=== PATIENT | female | born 1975 | race African-American/Black ===

== ENCOUNTER 2016-12-14 09:11 | Emergency (ER) | payer OTHER ==
[~2016-12-14] VITALS: Ht 180.3 cm; Wt 136.1 kg
[2016-12-14 09:23] VITALS: BP 166/99
--- NOTE | 2016-12-14 09:41 | PHYS DOC ---
Past Medical History Past Medical History: No Pertinent History Past Surgical History: No Surgical History Smoking: Less than 1pk/day Alcohol Use: Rarely Drug Use: None Adult General Chief Complaint Chief Complaint: SORE THROAT HPI HPI Patient is a 41 year old female who presents with sore throat and fever for 3 days. She reports temperature up to 102F. She completed the pain in the right ear and productive cough as well. She denies nasal congestion or shortness of breath. She sees a PCP at [facility]. Review of Systems Review of Systems Constitutional: Reports fever. Eyes: Denies change in visual acuity, redness, or eye pain. [] HENT: Denies nasal congestion. Reports sore throat and right ear pain. Respiratory: Denies shortness of breath. Reports productive cough. Cardiovascular: Denies chest pain, palpitations or edema. [] GI: Denies abdominal pain, nausea, vomiting, bloody stools or diarrhea. [] : Denies dysuria, hematuria or urinary frequency. [] Musculoskeletal: Denies back pain or joint pain. [] Integument: Denies rash or skin lesions. [] Neurologic: Denies headache, focal weakness or sensory changes. [] Endocrine: Denies polyuria or polydipsia. [] Psych: Denies anxiety or depression. [] All systems reviewed and negative unless otherwise stated in the HPI. Allergies Allergies Allergies Coded Allergies Type Severity Reaction Last Updated Verified No Known Drug Allergies 12/14/16 No Physical Exam Physical Exam Constitutional: Well developed, well nourished, no acute distress, non-toxic appearance. [] HENT: Normocephalic, atraumatic, bilateral external ears normal, oropharynx moist, no oral exudates, nose normal. Bilateral TMs without erythema or bulging. There is posterior pharyngeal erythema with bilateral tonsillar edema. There is no peritonsillar abscess or uvular deviation. Bilateral turbinates are swollen and erythematous with purulent drainage. Eyes: PERRLA, EOMI, conjunctiva normal, no discharge. [] Neck: Normal range of motion, no tenderness, supple, no stridor. Right anterior cervical lymphadenopathy. Cardiovascular: Heart rate regular rhythm, no murmur [] Lungs & Thorax: Bilateral breath sounds clear to auscultation without wheezes, rales, or rhonchi. Skin: Warm, dry, no erythema, no rash. [] Neurologic: Alert and oriented X 3, normal motor function, normal sensory function, no focal deficits noted. [] Psychologic: Affect normal, judgement normal, mood normal. [] Current Patient Data Vital Signs Vital Signs Date Time Temp Pulse Resp B/P Pulse Ox O2 Delivery O2 Flow Rate FiO2 12/14/16 09:23 98.6 89 20 98 Room Air 98.6 Lab Values Rapid strep positive EKG EKG [] Radiology/Procedures Radiology/Procedures [] Course & Med Decision Making Course & Med Decision Making Pertinent Labs and Imaging studies reviewed. (See chart for details) The patient was given IM Bicillin LA for treatment of her strep throat. Dragon Disclaimer Dragon Disclaimer This electronic medical record was generated, in whole or in part, using a voice recognition dictation system. Departure Departure Impression: Primary Impression: Strep throat Disposition: 01 HOME, SELF-CARE Condition: STABLE Referrals: NON,STAFF (PCP) Patient Instructions: Strep Throat, [id number] Additional Instructions: Your strep test was positive. You were given a shot of antibiotics in the emergency department. You should not require any additional treatment for your infection. Please take Tylenol or ibuprofen for fever or pain control. Use according to package instructions. Please drink lots of water to stay hydrated and get plenty of rest. Please follow-up with a primary care provider within the next week. Return to the emergency department if you have any new or concerning symptoms. VALENTINO VERONICA Dec 14, 2016 09:41
[2016-12-14] MEDS ORDERED: PENICILLIN G BENZATHINE LA 1,200,000 UNIT/2 ML DISP.SYRIN. IM ONE (10:30)
[2016-12-14 11:44] LABS: NEGATIVE OBC STREP NEG; POSITIVE OBC STREP POS
== END 2016-12-14 10:56 | disposition home or self-care (01) ==
LOC: ER 09:11
DX: J02.0 Streptococcal pharyngitis (principal); H92.01 Otalgia, right ear; F17.200 Nicotine dependence, unspecified, uncomplicated
CPT/HCPCS: 87880; 96372; 99283; J0561